=== PATIENT | male | born 1975 | race Caucasian/White ===

== ENCOUNTER 2022-04-22 13:49 | Emergency (ER) | payer SELFPAY ==
--- NOTE | 2022-04-22 14:28 | RAD REPORT ---
EXAM DESCRIPTION: RAD - Ankle Right 3 View - 04/22/2022 2:18 pm CLINICAL HISTORY: PAIN COMPARISON: No comparisons FINDINGS: Moderate soft tissue swelling is seen adjacent to the lateral malleolus. No fracture or di slocation seen. Small posterior calcaneal spur.
[2022-04-22] MEDS ORDERED: KETOROLAC 30 MG/ML INJ ONE (14:44)
--- NOTE | 2022-04-22 15:12 | ER ---
Nurse's Notes [facility] Name: Robe Pedro Age: 46 yrs Sex: Male : 1975 Arrival Date: 04/22/2022 Time: 13:52 Bed 9 Private MD: Diagnosis: Sprain of ankle Presentation: 04/22 14:04 Chief complaint: Patient states: Stepped in pot hole and twisted R ankle. Coronavirus ph screen: Vaccine status: Patient reports being unvaccinated. Ebola Screen: No symptoms or risks identified at this time. Initial Sepsis Screen: Does the patient meet any 2 criteria? No. Patient's initial sepsis screen is negative. Does the patient have a suspected source of infection? No. Patient's initial sepsis screen is negative. Risk Assessment: Do you want to hurt yourself or someone else? Patient reports no desire to harm self or others. Onset of symptoms was April 22, 2022. 14:04 Method Of Arrival: Wheelchair ph 14:04 Acuity: RIKKI 4 ph Historical: - Allergies: 14:06 PENICILLINS; ph - PMHx: 14:06 None; ph - Immunization history:: Adult Immunizations unknown. - Social history:: Smoking status: Patient reports the use of cigarette tobacco products, smokes one-half pack cigarettes per day. Screenin:53 [facility] ED Fall Risk Assessment (Adult) History of falling in the last 3 months, ph including since admission No falls in past 3 months (0 pts) Confusion or Disorientation No (0 pts) Intoxicated or Sedated No (0 pts) Impaired Gait Yes (1 pt) Mobility Assist Device Used No (0 pt) Altered Elimination No (0 pt) Score/Fall Risk Level 0 - 2 = Low Risk Maintained a safe environment. Abuse screen: Denies threats or abuse. Denies injuries from another. Nutritional screening: No deficits noted. Tuberculosis screening: No symptoms or risk factors identified. Assessment: 15:53 General: Appears in no apparent distress. comfortable, Behavior is calm, cooperative, ph appropriate for age. Pain: Complains of pain in right foot. Neuro: Level of Consciousness is awake, alert, obeys commands, Oriented to person, place, time, situation. Derm: Skin is intact, is healthy with good turgor, Skin is pink, warm \T\ dry. Musculoskeletal: Swelling present in right foot. Vital Signs: 14:04 BP 146 / 104; Pulse 87; Resp 18; Temp 98.1; Pulse Ox 96% on R/A; Weight 104.33 kg; ph Height 5 ft. 11 in. (180.34 cm); Pain 7/10; 14:04 Body Mass Index 32.08 (104.33 kg, 180.34 cm) ph ED Course: 13:52 Patient arrived in ED. mr 13:57 Bravo Valdes PA is PHCP. m 13:57 Summer Chauhan MD is Attending Physician. jmm 14:06 Triage completed. ph 14:06 Arm band placed on. ph 14:20 Ankle Right 3 View XRAY In Process Unspecified. EDMS 14:37 Claribel Townsend, RN is Primary Nurse. iw 15:11 Usman Agustin MD is Referral Physician. jmm 15:40 Crutch training done. mm9 15:53 No provider procedures requiring assistance completed. Patient did not have IV access ph during this emergency room visit. 15:54 Patient has correct armband on for positive identification. Bed in low position. Call ph light in reach. Administered Medications: 14:50 Drug: Ketorolac 30 mg Route: IM; Site: right deltoid; iw Medication: 15:54 VIS not applicable for this client. ph Outcome: 15:12 Discharge ordered by . [facility] 15:55 Discharged to home ambulatory, with crutches. ph 15:55 Condition: good 15:55 Discharge instructions given to patient, Instructed on discharge instructions, follow up and referral plans. medication usage, Demonstrated understanding of instructions, follow-up care, medications, Prescriptions given X 1. 15:55 Patient left the ED. ph Signatures: Dispatcher [employer] EDMS Bravo Valdes PA PA jmm Rivera, Mary mr Claribel Townsend, GIOVANNA HEREDIA iw Kate Blount RN RN Lia Villanueva mm9
--- NOTE | 2022-04-22 15:12 | EDPHYS ---
Physician Documentation [facility] Name: Robe Pedro Age: 46 yrs Sex: Male : 1975 Arrival Date: 04/22/2022 Time: 13:52 Bed 9 Private MD: ED Physician Summer Chauhan HPI: 04/22 14:07 This 46 yrs old Male presents to ER via Wheelchair with complaints of Ankle Injury. [facility] 14:07 The patient presents with an injury, pain. Onset: The symptoms/episode began/occurred jmm acutely, just prior to arrival. Associated signs and symptoms: Pertinent positives: swelling. This is a 46 year old male with no chronic medical conditions that presents to the ED with complaints of right ankle pain beginning after inverting his foot. Patient states he accidently stepped in a hole. Denies other injury. . Historical: - Allergies: 14:06 PENICILLINS; ph - PMHx: 14:06 None; ph - Immunization history:: Adult Immunizations unknown. - Social history:: Smoking status: Patient reports the use of cigarette tobacco products, smokes one-half pack cigarettes per day. ROS: 14:07 Constitutional: Negative for fever, chills, and weight loss, Cardiovascular: Negative jmm for chest pain, palpitations, and edema, Respiratory: Negative for shortness of breath, cough, wheezing, and pleuritic chest pain. 14:07 MS/extremity: Positive for injury or acute deformity, pain. 14:07 All other systems are negative. Exam: 14:07 Constitutional: This is a well developed, well nourished patient who is awake, alert, jmm and in no acute distress. Head/Face: atraumatic. Eyes: EOMI, no conjunctival erythema appreciated ENT: Moist Mucus Membranes Neck: Trachea midline, Supple Chest/axilla: Normal chest wall appearance and motion. Cardiovascular: Regular rate and rhythm. No edema appreciated Respiratory: Normal respirations, no respiratory distress appreciated Abdomen/GI: Non distended Back: Normal ROM Skin: General appearance color normal 14:07 Musculoskeletal/extremity: swelling noted to the right ankle, lateral malleolus ttp, compartments are soft, full dorsalis pulse, no pain at the base of the 5th metatarsal, NVI. 14:07 Skin: Appearance: Color: normal in color. 14:07 Neuro: Orientation: is normal, Mentation: is normal, Memory: is normal. 14:07 Psych: Behavior/mood is pleasant, cooperative. Vital Signs: 14:04 BP 146 / 104; Pulse 87; Resp 18; Temp 98.1; Pulse Ox 96% on R/A; Weight 104.33 kg; ph Height 5 ft. 11 in. (180.34 cm); Pain 7/10; 14:04 Body Mass Index 32.08 (104.33 kg, 180.34 cm) ph Procedures: 15:29 Splinting: Splint applied to right foot using kendrick wrap, applied by nurse. Examined by lucero me, post splint application: neurovascular intact, 2+ distal pulses palpable, brisk capillary refill noted, Patient tolerated well. MDM: 14:07 Patient medically screened. [facility] 15:11 Data reviewed: vital signs, nurses notes. Counseling: I had a detailed discussion with lucero the patient and/or guardian regarding: the historical points, exam findings, and any diagnostic results supporting the discharge/admit diagnosis, the need for outpatient follow up, to return to the emergency department if symptoms worsen or persist or if there are any questions or concerns that arise at home. 04/22 14:07 Order name: Ankle Right 3 View XRAY; Complete Time: 14:31 [facility] 04/22 14:07 Order name: Ice pack; Complete Time: 14:58 [facility] 04/22 14:32 Order name: Kendrick wrap-joint; Complete Time: 14:58 [facility] 04/22 14:32 Order name: Crutches; Complete Time: 15:02 [facility] Administered Medications: 14:50 Drug: Ketorolac 30 mg Route: IM; Site: right deltoid; iw Disposition: 18:55 STAFF ATTESTATION STATEMENT: I was immediately available onsite in the emergency sd2 department for consultation in the care of this patient. I did not see or examine this patient. Summer Chauhan MD. Disposition Summary: 04/22/22 15:12 Discharge Ordered Location: Home [facility] Condition: Stable [facility] Diagnosis - Sprain of ankle [facility] Followup: dave - With: Usman Agustin MD - When: 2 - 3 days - Reason: Recheck today's complaints, Continuance of care, Re-evaluation by your physician Discharge Instructions: - Discharge Summary Sheet [facility] - Ankle Sprain [facility] Forms: - Medication Reconciliation Form jmm - Thank You Letter lucero - Antibiotic Education [facility] - Prescription Opioid Use [facility] Prescriptions: - orphenadrine citrate 100 mg Oral Tablet Sustained Release - take 1 tablet by ORAL route 2 times per day As needed; 20 tablet; Refills: 0, jmm Product Selection Permitted Signatures: Dispatcher [employer] EDBravo Vogt PA PA jmm Williams, Irene, RN RN Kate Blount RN RN [facility] MD MD sd2
[2022-04-22 16:01] VITALS: BP 146/104; TEMP 98.1; O2SAT 96
== END 2022-04-22 15:55 | disposition home or self-care (01) ==
LOC: ER 13:49
DX: S93.401A Sprain of unspecified ligament of right ankle, initial encounter (principal); F17.210 Nicotine dependence, cigarettes, uncomplicated; Z88.0 Allergy status to penicillin
CPT/HCPCS: 96372; 99284